=== PATIENT | female | born 1980 | race African-American/Black ===

== ENCOUNTER 2020-02-08 15:29 | Inpatient (IN) | payer MEDICAID, OTHER ==
[~2020-02-08] VITALS: Ht 170.2 cm; Wt 74.0 kg
[2020-02-08] MEDS ORDERED: SODIUM CHLORIDE 0.9% 1,000 ML IV ONE ×2 (15:34)
[2020-02-08 16:25] LABS: Basophils # (auto) 0 10 ^3/uL (0-0.2); Basophils % (auto) 0.2 % (0.0-2.0); Eosinophils # (auto) 0 10 ^3/uL (0-0.8); Eosinophils % (auto) 0.3 % (0.0-7.0); Hematocrit 41.5 % (36.0-46.0); Hemoglobin 14.1 g/dL (12.2-16.2); Lymphocytes # (auto) 1.9 10 ^3/uL (0.4-5.4); Lymphocytes % (auto) 36.1 % (10.0-50.0); Mean Corpuscular Hemoglobin 33.5 pg (28.0-32.0); Mean Corpuscular Volume 98.5 fL (80.0-100.0); Monocytes # (auto) 0.5 10 ^3/uL (0-1.3); Monocytes % (auto) 9.4 % (0.0-12.0); Neutrophils # (auto) 2.9 10 ^3/uL (1.6-8.6); Nucleated Red Blood Cells % 0.1 %; Platelet Count (auto) 239 10^3/uL (140-450); Red Blood Cells 4.21 10^6/uL (4.0-5.20); Red Cell Distribution Width 12.6 % (11.8-14.3); White Blood Cell 5.3 10^3/uL (4.4-10.8)
[2020-02-08 16:34] LABS: INR 1.06 (0.9-1.15); Partial Thromboplastin Time 24.1 sec (23.64-32.05)
[2020-02-08 16:38] LABS: Albumin 3.8 g/dL (3.4-5.0); Anion Gap 11 (5-15); Blood Urea Nitrogen 11 mg/dL (7-18); Calcium 8.5 mg/dL (8.5-10.1); Carbon Dioxide 27 mmol/L (21-32); Chloride 94 mmol/L (98-107); Glucose 128 mg/dL (74-106); Sodium 132 mmol/L (136-145)
[2020-02-08 16:40] LABS: Alanine Aminotransferase 23 U/L (13-56); Aspartate Aminotransferase 18 U/L (15-37); BUN/Creatinine Ratio 16.7; GFR African American 130 mL/min; GFR Non-African American 107 mL/min
[2020-02-08 16:45] LABS: Alkaline Phosphatase 92 U/L (45-117); Bilirubin, Total 1.1 mg/dL (0.2-1.0); Total Protein 7.6 g/dL (6.4-8.2)
[2020-02-08] MEDS ORDERED: NITROGLYCERIN 0.4 MG SL TAB SL PRN (18:30)
[2020-02-08] MEDS ORDERED: THIAMINE 100mg/ml INJ (200mg/2ml VIAL) IV ONE (19:00)
[2020-02-08] MEDS ORDERED: LORazepam 2MG/ML-1ML VIAL IV ONE (19:00)
[2020-02-08] MEDS: MORPHINE SULF INJ 2 MG/ML SYRINGE 1ML IV PRN ×2 (19:06→21:35)
--- NOTE | 2020-02-08 20:30 | NUR ---
Telemetry admit from ER Patient admitted to Telemetry unit and oriented to primary RN, unit, room, bed, and unit policies regarding patient care and visiting hours. Patient now on continuous telemetry monitoring, tele box #[id number] and telemetry reading on arrival to unit is sinus rhythm in 70s. Patient placed on bedside oxygen at 2 l/min NC, weighed by bedscale and encouraged to call if they need something. All questions and concerns addressed, patient verbalized understanding. Bed is in lowest position and locked. Call light within reach. Board updated.
[2020-02-08] MEDS ORDERED: ONDANSETRON HCL 4 MG/2 ML VIAL IV PRN (20:45)
--- NOTE | 2020-02-08 21:35 | NUR ---
Chest pain Patient reported chest pain 8 out 10 in her mid sternum, radiating down to medial upper abdomen. BP was 187/109, HR: 62. EKG performed (2109): Sinus rhtyhm, rate of 60. Nitroglycerin 0.4 mg SL given at 2120. Reassessment (2126): BP: 151/98 with pulse of 76. No relief from pain. Second nitro given. No relief from pain after 5 minutes: BP: 156/96 with HR of 72. Morphine 2 mg IV given with ondansetron 4 mg IV at 2134.
--- NOTE | 2020-02-08 21:56 | NUR ---
Paging hospitalist for elevated BP, Elevated Beta hydroxybutyric acid, chest pain, low potassium, and continued pain. Patient had chest pain 8/10 on arrival. EKG revealed sinus rhythm, rate of 60. Nitorglycerin 0.4 mg given twice. no change in pain. Morphine 2 mg IV given once with zofran. Pain currently 4 out of 10. BP was 177/109. No BP Meds on board. Bp currently 151/98. Patient's potassium was also 3.0 on admission. No potassium supplementation given. Patient has elevated Beta hydroxybutyric acid of 2.321 mmol/l. Patient is diabetic (type 2) but current serum blood glucose is 110. Patient has history of alcohol abuse, last drink was 01/30--one beer.
[2020-02-08 22:00] VITALS: BP 177/109
[2020-02-08] MEDS ORDERED: INS7030I SC (22:00)
--- NOTE | 2020-02-08 22:10 | NUR ---
Spoke to BROOKE Webster and notifed of the information in the below note. He told me to wait for MD Gonzalez to put in orders and if the potassium and BP is not addressed to put the following orders in: 1) Clonidine 0.1 mg PO q 6hrs PRN SBP>150mmhg, 2) Potassium 40 meq po once. Per BROOKE Webster, wait [address] those orders if no other orders addressing issues have been placed by MD Gonzalez.
[2020-02-08] MEDS ORDERED: POTASSIUM CHL 20 Meq TABLET PO ONE (23:45)
[2020-02-08] MEDS ORDERED: cloNIDine HCL 0.1 MG TAB PO PRN (23:45)
--- NOTE | 2020-02-09 00:54 | NUR ---
Spoke to BROOKE Webster and notified him that no new orders have been placed by MD Gonzalez. Orders received: 1) Regular insulin on mild scale ACHS, 2) Accucheck ACHS, 3) Full liquid diet.
[2020-02-09] MEDS ORDERED: DEXTROSE (50%) 50ML SYRG IV PRN ×3 (01:00→12:45)
[2020-02-09] MEDS ORDERED: FOLIC ACID 1 MG TAB PO ONE (01:15)
[2020-02-09] MEDS ORDERED: NITROGLYCERIN 0.4 MG SL TAB SL PRN (01:15)
[2020-02-09] MEDS ORDERED: LISINOPRIL 20 MG TAB PO ONE (01:15)
[2020-02-09] MEDS ORDERED: LORazepam 0.5 MG TAB PO PRN (01:15)
[2020-02-09] MEDS ORDERED: hydrALAZINE HCL 20 MG/ML VL IV PRN (01:15)
[2020-02-09] MEDS ORDERED: MULTIPLE VITAMIN TAB PO ONE (01:15)
[2020-02-09] MEDS ORDERED: POTASSIUM CHL 20MEQ/100ML 100 ML IV ONE (01:15)
[2020-02-09] MEDS ORDERED: DOCUSATE SOD 100 MG CAP PO PRN (01:15)
[2020-02-09] MEDS ORDERED: LACTATED RINGER'S 1,000 ML IV ONE (01:15)
[2020-02-09] MEDS ORDERED: LORazepam 2MG/ML-1ML VIAL IV PRN (01:15)
[2020-02-09] MEDS ORDERED: HCTZ 25 MG TAB PO ONE (01:15)
[2020-02-09] MEDS ORDERED: THIAMINE HCL 100 MG TAB PO ONE (01:15)
[2020-02-09] MEDS ORDERED: MORPHINE SULF INJ 2 MG/ML SYRINGE 1ML IV PRN ×3 (01:15→12:45)
[2020-02-09] MEDS ORDERED: METOPROLOL TARTRATE 25 MG TAB PO ONE (01:15)
[2020-02-09] MEDS: ALUM & MAG HYDROX-SIMETH LIQ(MAALOX) 30 ML PO PRN ×2 (03:58→08:02)
[2020-02-09] MEDS: HYDROmorphone HCL 2 MG/ML VL IV PRN ×3 (03:58→12:24)
[2020-02-09 05:00] VITALS: BP 116/76
[2020-02-09 05:14] LABS: Basophils # (auto) 0 10 ^3/uL (0-0.2); Basophils % (auto) 0.3 % (0.0-2.0); Eosinophils # (auto) 0 10 ^3/uL (0-0.8); Eosinophils % (auto) 0.5 % (0.0-7.0); Hematocrit 39.7 % (36.0-46.0); Hemoglobin 13.5 g/dL (12.2-16.2); Lymphocytes # (auto) 2.9 10 ^3/uL (0.4-5.4); Lymphocytes % (auto) 48.5 % (10.0-50.0); Mean Corpuscular Hemoglobin 33.7 pg (28.0-32.0); Mean Corpuscular Hgb Conc. 34.1 g/dL (32.0-36.0); Mean Corpuscular Volume 98.9 fL (80.0-100.0); Monocytes # (auto) 0.5 10 ^3/uL (0-1.3); Monocytes % (auto) 7.6 % (0.0-12.0); Neutrophils # (auto) 2.6 10 ^3/uL (1.6-8.6); Neutrophils % (auto) 43.1 % (37.0-80.0); Nucleated Red Blood Cells % 0.1 %; Platelet Count (auto) 223 10^3/uL (140-450); Red Blood Cells 4.01 10^6/uL (4.0-5.20); Red Cell Distribution Width 12.4 % (11.8-14.3); White Blood Cell 6.1 10^3/uL (4.4-10.8)
[2020-02-09 05:30] LABS: INR 1.07 (0.9-1.15); Partial Thromboplastin Time 25.5 sec (23.64-32.05)
[2020-02-09 05:31] LABS: Albumin 3.4 g/dL (3.4-5.0); Anion Gap 8 (5-15); Blood Urea Nitrogen 9 mg/dL (7-18); Calcium 8.1 mg/dL (8.5-10.1); Carbon Dioxide 26 mmol/L (21-32); Chloride 99 mmol/L (98-107); Glucose 106 mg/dL (74-106); Magnesium 1.7 mg/dL (1.6-2.6); Potassium 3.3 mmol/L (3.5-5.1); Sodium 133 mmol/L (136-145)
[2020-02-09 05:34] LABS: Alanine Aminotransferase 23 U/L (13-56); Aspartate Aminotransferase 17 U/L (15-37); BUN/Creatinine Ratio 16.7; GFR African American 163 mL/min; GFR Non-African American 135 mL/min
[2020-02-09 05:40] LABS: Alkaline Phosphatase 87 U/L (45-117); Bilirubin, Total 0.9 mg/dL (0.2-1.0); Phosphorus 3.1 mg/dL (2.5-4.90)
[2020-02-09 06:00] LABS: Cholesterol 195 mg/dL (< 200); HDL Cholesterol 41 mg/dL (40-59); LDL Cholesterol 138 mg/dL (< 100); Triglycerides 95 mg/dL (< 150)
[2020-02-09] MEDS: SOD CHL 0.9%/ KCL 40MEQ 1,000 ML IV SCH ×2 (06:24→09:35)
[2020-02-09] MEDS: ACCU-CHEK COMFORT CURVE STRIP VI SCH ×4 (06:24→21:31)
[2020-02-09] MEDS: InsuLIN REG 1unit/0.01ml Soln (100units/ml) SC SCH ×4 (06:46→21:47)
[2020-02-09] MEDS ORDERED: InsuLIN REG 1unit/0.01ml Soln (100units/ml) SC SCH (07:00)
[2020-02-09] MEDS ORDERED: ACCU-CHEK COMFORT CURVE STRIP VI SCH (07:00)
[2020-02-09 07:21] LABS: Urine Bacteria FEW /hpf (None Seen); Urine Blood Negative /uL (Negative); Urine Mucus FEW (None Seen); Urine Specific Gravity 1.021 (1.001-1.035); Urine WBC 1 /hpf (0 - 5)
[2020-02-09 07:24] LABS: Amphetamine Screen, Urine NEGATIVE (NEGATIVE); Barbiturate Scree,Urine NEGATIVE (NEGATIVE); Cannabinoid Screen, Urine POSITIVE (NEGATIVE); Cocaine Screen, Urine NEGATIVE (NEGATIVE); Opiate Scree,Urine POSITIVE (NEGATIVE); Phencyclidine Screen, Urine NEGATIVE (NEGATIVE)
[2020-02-09 07:32] LABS: Benzodiazephine Screen, Urine NEGATIVE (NEGATIVE)
[2020-02-09 07:33] LABS: Alcohol, Urine < 3.0 mg/dL (0-10)
[2020-02-09 08:00] VITALS: BP 128/76
[2020-02-09] MEDS: ONDANSETRON HCL 4 MG/2 ML VIAL IV PRN ×2 (08:13→21:27)
[2020-02-09] MEDS: FOLIC ACID 1 MG TAB PO SCH (09:39)
[2020-02-09] MEDS: THIAMINE HCL 100 MG TAB PO SCH (09:40)
[2020-02-09] MEDS: MULTIPLE VITAMIN TAB PO SCH (09:40)
[2020-02-09] MEDS ORDERED: HCTZ 25 MG TAB PO SCH (10:00)
[2020-02-09] MEDS ORDERED: CLOPIDOGREL BISULFATE 75 MG TAB PO SCH (10:00)
[2020-02-09] MEDS ORDERED: LISINOPRIL 20 MG TAB PO SCH (10:00)
[2020-02-09] MEDS: ENOXAPARIN SOD 40 MG/0.4 ML SYRINGE SC SCH (10:00)
[2020-02-09] MEDS ORDERED: METOPROLOL TARTRATE 25 MG TAB PO SCH (10:00)
[2020-02-09] MEDS ORDERED: POTASSIUM CHL 20 Meq TABLET PO SCH (10:00)
--- NOTE | 2020-02-09 10:00 | NUR ---
PT REFUSED BLOOD THINNERS, PER PT SHE IS NOT TAKING ANY BLOOD THINNER AT HOME, PT REFUSED LOVENOX, PT STATED SHE WILL WALK IN THE HALLWAY TO PREVENT BLOOD CLOTS. WILL INFORM .
[2020-02-09 12:00] VITALS: BP 112/85
--- NOTE | 2020-02-09 12:09 | NUR ---
PT SEEN BY DR. DOMINGO MADE AWARE I HELD PLAVIX AND BLOOD PRESSURE MEDICATION, PT IS NOT TAKING PLAVIX AND BLOOD PRESSURE MEDICATION AT HOME AND HEART RATE IS LOW AND BLOOD PRESSURE IS NORMAL. PER DR. DOMINGO SHE WILL TAKE CARE OF IT.
[2020-02-09] MEDS ORDERED: MAGNESIUM SULFATE 1GM/100ML 100 ML IV ONE (12:45)
[2020-02-09] MEDS ORDERED: PANTOPRAZOLE 40 MG/10 ML VIAL INJ IV ONE ×2 (12:45→13:30)
[2020-02-09 13:27] LABS: Amylase 20 U/L (25-115); Lipase 14 U/L (73-393)
--- NOTE | 2020-02-09 16:35 | NUR ---
PT SIGNED AMA TO GO OUTSIDE TO GET SOME FRESH AIR.
[2020-02-09 17:00] VITALS: BP 132/77
--- NOTE | 2020-02-09 19:20 | NUR ---
Opening Shift Note Assumed care of patient, awake and alert. No S/S of distress/SOB or pain. Safety measures in place bed in lowest position, side rails up x2, and call light within reach. Instructed on POC and to call for assist PRN, will continue to monitor for changes Q1hr and PRN.
--- NOTE | 2020-02-09 21:05 | NUR ---
Patient complaining of pain 5/10. Pain is located upper abdominal area. Patient requesting pain medication. Patient does not have medication available for the pain level. Will page hospitalist.
--- NOTE | 2020-02-09 21:10 | NUR ---
Hospitalist returned paged, orders received.
[2020-02-09] MEDS ORDERED: HYDROcodone-ACET 5/325MG TAB PO PRN (21:15)
[2020-02-09] MEDS: D5W/SOD CHL 0.45%/KCL 40MEQ 1,000 ML IV SCH (21:29)
[2020-02-09] MEDS: METOPROLOL TARTRATE 25 MG TAB PO SCH (21:30)
--- NOTE | 2020-02-09 21:30 | NUR ---
Patient refused Lopressor and Lipitor. Educated patient about the risk and benefits; patient verbalized understanding. Patient continued to refuse. Will continue to monitor.
[2020-02-09 22:00] VITALS: BP 114/76
[2020-02-09] MEDS ORDERED: ATORVASTATIN 20 MG TAB PO SCH ×2 (22:00)
--- NOTE | 2020-02-09 23:49 | NUR ---
IV removal Patient complaining about pain to IV site. Site is free of redness and swelling. IV DC'd with sterile technique, catheter fully intact. Pressure dressing applied to site. Patient tolerated procedure well.
--- NOTE | 2020-02-10 00:39 | NUR ---
IV insertion IV access obtained, via clean sterile technique by inserting 22 gauge catheter at Right forearm after 3 attempts. IV secured properly. No trauma to site. Patient tolerated procedure well.
--- NOTE | 2020-02-10 00:46 | NUR ---
Patient off unit. AMA signed.
[2020-02-10 05:00] VITALS: BP 132/90
[2020-02-10] MEDS: ACCU-CHEK COMFORT CURVE STRIP VI SCH ×2 (06:25→11:28)
[2020-02-10] MEDS: InsuLIN REG 1unit/0.01ml Soln (100units/ml) SC SCH ×2 (06:26→11:28)
[2020-02-10 07:11] LABS: Potassium 4.4 mmol/L (3.5-5.1)
[2020-02-10 07:18] LABS: BUN/Creatinine Ratio 13.4; Magnesium 1.9 mg/dL (1.6-2.6)
--- NOTE | 2020-02-10 07:30 | NUR ---
RECEIVED REPORT FROM NIGHT NURSE. PATIENT RESTING IN BED, NO DISTRESS NOTED. WILL CONTINUE TO MONITOR.
[2020-02-10 08:00] VITALS: BP 144/94
[2020-02-10] MEDS: FOLIC ACID 1 MG TAB PO SCH (10:00)
[2020-02-10] MEDS: THIAMINE HCL 100 MG TAB PO SCH (10:00)
[2020-02-10] MEDS ORDERED: LISINOPRIL 20 MG TAB PO SCH (10:00)
[2020-02-10] MEDS: MULTIPLE VITAMIN TAB PO SCH (10:00)
[2020-02-10] MEDS: METOPROLOL TARTRATE 25 MG TAB PO SCH (10:00)
[2020-02-10] MEDS: ENOXAPARIN SOD 40 MG/0.4 ML SYRINGE SC SCH (10:00)
[2020-02-10] MEDS ORDERED: PANTOPRAZOLE 40 MG/10 ML VIAL INJ IV SCH (10:00)
[2020-02-10] MEDS: D5W/SOD CHL 0.45%/KCL 40MEQ 1,000 ML IV SCH (10:08)
--- NOTE | 2020-02-10 10:10 | NUR ---
PATIENT REFUSED ALL MORNING MEDICATIONS. PATIENT STATES, " I DON'T WANT THEM AND I ONLY WANT MY INSULIN TODAY". PATIENT EDUCATED ON IMPORTANCE OF MEDICATION. WILL CONTINUE TO MONITOR.
--- NOTE | 2020-02-10 10:14 | NUR ---
DOCTOR CONNOR AT BEDSIDE.
[2020-02-10 12:00] VITALS: BP 138/89
--- NOTE | 2020-02-10 14:50 | NUR ---
Discharge instructions given as ordered. Encourage to follow up with PMD as instructed. All questions and concerns addressed. Patient verbalized understanding. Medication reconciliation form completed and copy given to patient. IV removed with catheter intact, pressure dressing applied. Telemetry unit returned to ICU. Patient walked to lobby with all personal belongings. No distress noted at time of departure.
== END 2020-02-10 14:46 | disposition home or self-care (01) | DRG 241 ==
LOC: EDUNIT# 15:29 → EDBD 15:29 → ER 15:29 → TELE 15:30 → TELE-CENTR 20:30
PROVIDERS: ADMIT Hospitalist; ATTEND Internal Medicine
DX: K29.70 Gastritis, unspecified, without bleeding (principal); E10.22 Type 1 diabetes mellitus with diabetic chronic kidney disease; I12.0 Hypertensive chronic kidney disease with stage 5 chronic kidney disease or end stage renal disease; K31.84 Gastroparesis; E87.1 Hypo-osmolality and hyponatremia; E10.43 Type 1 diabetes mellitus with diabetic autonomic (poly)neuropathy; N18.6 End stage renal disease; E86.0 Dehydration; E87.6 Hypokalemia; I16.9 Hypertensive crisis, unspecified; K21.9 Gastro-esophageal reflux disease without esophagitis; E78.5 Hyperlipidemia, unspecified; Y90.9 Presence of alcohol in blood, level not specified; F10.10 Alcohol abuse, uncomplicated; F12.90 Cannabis use, unspecified, uncomplicated; F17.200 Nicotine dependence, unspecified, uncomplicated; Z79.4 Long term (current) use of insulin; Z83.3 Family history of diabetes mellitus; Z91.19 Patient's noncompliance with other medical treatment and regimen; Z99.2 Dependence on renal dialysis; Z79.899 Other long term (current) drug therapy
CPT/HCPCS: 36415; 71045; 74176; 80048; 80053; 80061; 80307; 81001; 81025; 82010; 82150; 82962; 83036; 83690; 83735; 83880; 84100; 84484; 84702; 85025; 85610; 85730; 87086; 93005; 93306; C9113; G0378; J1815; J2405; J3480